=== PATIENT | male | born 1995 | race Caucasian/White ===

== ENCOUNTER 2018-01-15 10:14 | Emergency (ER) | payer OTHER ==
[2018-01-15 10:31] VITALS: BP 126/82
--- NOTE | 2018-01-15 10:48 | UC ---
UC General HPI - HPI Summary HPI Summary: SINUS CONGESTION, COLORED DRAINAGE AND SINUS HEADACHE WORSENING FOR OVER A WEEK. ALSO, FREQUENT COUGH AND WHEEZING. HX ASTHMA. SOME RELIEF WITH ALBUTEROL MDI. + FEVER(SUBJECTIVE). - History of Current Complaint Chief Complaint: UCGeneralIllness Stated Complaint: FEVER,SINUSES Time Seen by Provider: 01/15/18 10:41 Hx Obtained From: Patient Onset/Duration: Gradual Onset Timing: Constant Pain Intensity: 6 Associated Signs & Symptoms: Positive: Cough, Fever, Headache, SOB, Wheezing - Allergy/Home Medications Allergies/Adverse Reactions: Allergies Allergy/AdvReac Type Severity Reaction Status Date / Time No Known Allergies Allergy Verified 01/15/18 10:31 Home Medications: Home Medications Albuterol HFA INHALER* [Ventolin HFA Inhaler*] 1 puff INH Q4H PRN 01/15/18 [ History Confirmed 01/15/18] Dextroamphetamine/Amphetamine [Adderall 30 mg-] 1 tab PO DAILY 01/15/18 [ History Confirmed 01/15/18] PMH/Surg Hx/FS Hx/Imm Hx Respiratory History: Asthma - Surgical History Surgical History: None - Family History Known Family History: Positive: Other - ASTHMA - Social History Occupation: Student Lives: Dormitory/Roommates Alcohol Use: Weekly Substance Use Type: None Smoking Status (MU): Never Smoked Tobacco - Immunization History Hx Tetanus, Diphtheria Vaccination: Yes Vaccination Up to Date: Yes Review of Systems Constitutional: Fever, Chills Skin: Negative Eyes: Negative ENT: Sinus Congestion, Sinus Pain/Tenderness Respiratory: Shortness Of Breath, Cough Cardiovascular: Negative Gastrointestinal: Negative Genitourinary: Negative Motor: Negative Neurovascular: Negative Musculoskeletal: Negative Neurological: Headache Psychological: Negative Is Patient Immunocompromised?: No All Other Systems Reviewed And Are Negative: Yes Physical Exam Triage Information Reviewed: Yes Appearance: Well-Appearing Vital Signs: Initial Vital Signs Temp 98.4 F 01/15/18 10:26 Pulse 98 01/15/18 10:26 Resp 18 01/15/18 10:26 BP 126/82 01/15/18 10:26 Pulse Ox 100 01/15/18 10:26 Vital Signs Reviewed: Yes Eyes: Positive: Conjunctiva Clear ENT: Positive: Pharynx normal, Nasal congestion, TMs normal, Sinus tenderness. Negative: Nasal drainage Neck: Positive: Supple, Nontender, No Lymphadenopathy Respiratory: Positive: Lungs clear, No respiratory distress, Decreased breath sounds - SLIGHTLY-USED [employer] [place] Cardiovascular: Positive: RRR, No Murmur Abdomen Description: Positive: Nontender, No Organomegaly, Soft Bowel Sounds: Positive: Present Musculoskeletal: Positive: ROM Intact Neurological: Positive: Alert Psychological: Positive: Age Appropriate Behavior Skin Exam: Normal Course/Dx - Course Course Of Treatment: NON TOXIC, NOT HYPOXIC. C/W ASTHMA FALRE AND SINUSITIS. - Differential Dx - Multi-Symptom Provider Diagnoses: SINUSITIS, ASTHMA FLARE Discharge - Sign-Out/Discharge Documenting (check all that apply): Patient Departure All imaging exams completed and their final reports reviewed: No Studies - Discharge Plan Condition: Stable Disposition: HOME Prescriptions: Amoxicillin/Clavulanate TAB* [Augmentin TAB 875*] 875 mg PO BID 10 Days #20 tab predniSONE [Prednisone 20 MG TAB] 40 mg PO DAILY 5 Days #10 tablet Patient Education Materials: Asthma (ED), Sinusitis (ED) Referrals: [facility] [Outside] - 5 Days Additional Instructions: USE RESCUE INHALER 2 PUFFS EVERY 6 HOURS - Billing Disposition and Condition Condition: STABLE Disposition: Home
== END 2018-01-15 10:56 | disposition home or self-care (01) ==
LOC: UCCORT 10:14
DX: J32.9 Chronic sinusitis, unspecified (principal); J45.909 Unspecified asthma, uncomplicated
CPT/HCPCS: 99202; G0463